=== PATIENT | female | born 1975 | race Hispanic/Latino ===

== ENCOUNTER → 2023-07-04 13:59 | Outpatient (CLI) | payer OTHER, SELFPAY ==
--- NOTE | 2023-07-04 14:11 | DI.MRI.S_ITS ---
PROCEDURE: MR ANKLE LT WO CON INDICATIONS: CHRONIC PAIN ANKLE LATERAL LIGAMENT TECHNIQUE: Noncontrast sagittal T1 spin echo and T2 fast spin echo with fat saturation, axial proton density fast spin echo and T2 fast spin echo with fat saturation, coronal T1 spin echo and T2 fast spin echo with fat saturation through the ankle/hindfoot. COMPARISON: None. FINDINGS: Image quality: Excellent. Bones and joints: Osteochondral injuries are noted involving medial weight-bearing portion of talar dome measures up to 0.4 x 0.3 x 1 cm in size. Surrounding edema is noted in weight-bearing portion of talus. No other area of abnormal marrow signal. Small tibiotalar joint effusion, no loose bodies. Medial structures: The posterior tibialis, flexor digitorum longus, and flexor hallucis longus tendons are intact. The posterior tibial neurovascular bundle appears normal within the tarsal tunnel, without extrinsic mass effect. The deep layer (anterior and posterior tibiotalar ligaments) and superficial layer (tibionavicular, tibiospring, and tibiocalcaneal ligaments) of the deltoid ligament appear normal. The spring ligament components (superomedial calcaneonavicular, medioplantar oblique calcaneonavicular, and inferoplantar longitudinal ligaments) are intact. Lateral structures: The anterior talofibular ligament is thickened. The calcaneofibular, and posterior talofibular ligaments appear intact. More superiorly, the anterior and posterior tibiofibular ligaments appear intact, as is the intermalleolar ligament. The tibiofibular syndesmosis is normal in width at 2 mm or less. The peroneus longus and brevis tendons are thickened at the level of mid to distal calcaneus extending to the level of cuboid. The sinus tarsi demonstrates normal fatty signal, without edema, fibrosis, or cyst formation. Visualized sinus tarsi components (cervical ligament, interosseous talocalcaneal ligament, roots of the inferior extensor retinaculum) appear normal. Anterior structures: The tibialis anterior, extensor hallucis longus, and extensor digitorum longus tendons appear intact. The dorsal talonavicular ligament appears intact. Posterior and plantar structures: Achilles tendon is intact. Medial and lateral bands of the plantar fascia are of normal thickness. No abductor digiti quinti muscle atrophy to suggest Vela neuropathy. IMPRESSION: 1. Osteochondral injuries involving medial weight-bearing portion of talar dome as described above. No fracture or dislocation. Small joint effusion, no loose bodies. 2. Low-grade ATFL sprain. 3. Tendinosis involving peroneus tendons at the level of mid to distal calcaneus extending to the level of cuboid. Dictated by: James Alfredo M.D. on 07/04/2023 at 16:53 Approved by: James Alfredo M.D. on 07/04/2023 at 16:55
== END ==
LOC: MRI 14:00
PROVIDERS: PCP Nurse Practitioner Family; Referring Provider Orthopaedic Surgery Foot and Ankle Surgery; Visit Provider Orthopaedic Surgery Foot and Ankle Surgery
DX: S99.812A Other specified injuries of left ankle, initial encounter (principal); S93.492A Sprain of other ligament of left ankle, initial encounter; M25.572 Pain in left ankle and joints of left foot; M25.472 Effusion, left ankle
CPT/HCPCS: 73721

== ENCOUNTER → 2023-08-02 10:48 | Outpatient (CLI) | payer OTHER, SELFPAY ==
--- NOTE | 2023-08-02 10:49 | DI.CT.S_ITS ---
PROCEDURE: CT ABDOMEN PELVIS WO CON INDICATIONS: History of kidney stones question of stone TECHNIQUE: Axial sections were acquired from the lung bases to the pubic symphysis. Coronal and sagittal reformats were performed. For radiation dose reduction, the following was used: automated exposure control, adjustment of mA and/or kV according to patient size. COMPARISON: None. FINDINGS: Image quality: Diagnostic. Lower Chest: No significant findings. URINARY: Right Kidney: Nonobstructing stones are seen in right kidney measures up to 3 mm in size in lower pole of right kidney. No hydronephrosis . Right Ureter: No hydroureter. Left Kidney: Tiny 1-2 mm nonobstructing stones are seen scattered in left renal parenchyma. No hydronephrosis. Left Ureter: No hydroureter. Bladder: Normal wall thickness. No stones. ABDOMEN: Liver: No contour-deforming solid mass. Moderate to severe hepatic steatosis is seen. Gallbladder: Gallbladder is surgically absent. Biliary ducts: No biliary dilation. Pancreas: No ductal dilation. Spleen: Size is within normal limits. Adrenal Glands: No adrenal nodules. Stomach and Bowel: There is no bowel obstruction or abnormal bowel wall thickening. No mesenteric fat stranding. Sigmoid diverticulosis is seen without CT evidence of acute diverticulitis. Appendix is not visualized. Peritoneum: No abnormal intraperitoneal fluid. No free air. Ventral Wall: No hernia. Abdominal Nodes: No enlarged retroperitoneal or mesenteric lymph nodes. Vessels: Aorta and inferior vena cava are normal in size. PELVIS: Pelvic Organs: Cystic structure within left adnexa measures 2.6 x 2.1 cm in size is seen. Surgical clip is also noted in left adnexa. Pelvic Nodes: Unremarkable. Miscellaneous: No inguinal hernias are seen. Bones: No aggressive appearing bony lesions. No acute vertebral body compression fracture. IMPRESSION: 1. Nonobstructing bilateral renal calculi measures up to 3 mm in size in mid to lower pole right kidney. No hydronephrosis or hydroureter. No solid appearing renal lesion. Normal appearing partially distended urinary bladder. 2. Moderate to severe hepatic steatosis. No discrete hepatic lesion. Prior cholecystectomy. No biliary ductal dilatation. 3. No bowel obstruction or abnormal bowel wall thickening. Colonic diverticulosis without CT evidence of acute diverticulitis. No free fluid or free air. 4. Possible left ovarian cyst as above. Dictated by: James Alfredo M.D. on 08/02/2023 at 12:50 Approved by: James Alfredo M.D. on 08/02/2023 at 12:58
== END ==
PROVIDERS: PCP Nurse Practitioner Family; Referring Provider Urology; Visit Provider Urology
DX: N39.3 Stress incontinence (female) (male) (principal); N20.0 Calculus of kidney; K76.0 Fatty (change of) liver, not elsewhere classified; Z90.49 Acquired absence of other specified parts of digestive tract; K57.30 Diverticulosis of large intestine without perforation or abscess without bleeding
CPT/HCPCS: 74176

== ENCOUNTER → 2023-12-12 13:45 | Outpatient (CLI) | payer OTHER, SELFPAY ==
--- NOTE | 2023-12-12 13:48 | DI.ECHO.S_ITS ---
[facility] : : [id number] : [place] : : [id number] : : Phone: [phone] Echocardiogram Report + + :Name: WILFREDO CALDERÓN Study Date: 12/12/2023 Height: 60 in : :Hospital ReadingLocation: Weight: 160 lb : : Gender: Female BSA: 1.7 m2 : :: 1975 Age: 48 yrs BP: 126/60 mmHg: :Reason For Study: CHEST PAIN, TACHYCARDIA : :Ordering Physician: BERTA STAHL Performed By: Florencio Camacho : :Referring: [id number] : + + Interpretation Summary The left ventricle is normal in size. The left ventricular ejection fraction is normal. The ejection fraction is estimated to be 60-65%. The right ventricle is normal in size and function. No significant valvular pathology seen The IVC is of normal diameter and collapses greater than 50% with a sniff. This suggests a low right atrial pressure of 3 mm Hg. Procedure: A two-dimensional transthoracic echocardiogram with color flow and Doppler was performed. The study quality was technically good. There is no prior echocardiogram noted for this patient. The patient was in normal sinus rhythm during the exam. Left Ventricle: The left ventricle is normal in size. There is normal left ventricular wall thickness. There is no thrombus. The ejection fraction is estimated to be 60-65%. The left ventricular ejection fraction is normal. There are no focal wall motion abnormalities. MV E/A: 1.1 Med Peak E' Cristian: 8.5 cm/sec E/E' med: 10.2. No significant diastolic dysfunction. Right Ventricle: The right ventricle is normal in size and function. The right ventricular systolic function is normal. Atria: The left atrial size is normal. Right atrial size is normal. There is no Doppler evidence for an atrial septal defect. Mitral Valve: The mitral valve is normal in structure and function. There is no mitral regurgitation noted. Aortic Valve: The aortic valve opens well. The aortic valve is not well visualized. There is no aortic valve stenosis. No aortic regurgitation is present. Tricuspid Valve: The tricuspid valve is normal. The right ventricular systolic pressure is estimated to be at least 23 mmHg based on an estimated right atrial pressure of 3 mm Hg. There is trace tricuspid regurgitation. Pulmonic Valve: The pulmonic valve is not well seen, but is grossly normal. There is no pulmonic valvular regurgitation. Great Vessels: The aortic root is normal size. The dimensions of the ascending aorta are normal. The pulmonary artery is normal size. The IVC is of normal diameter and collapses greater than 50% with a sniff. This suggests a low right atrial pressure of 3 mm Hg. Pericardium/ Pleura There is no pericardial effusion. There is an anterior echo-free space consistent with a fat pad. There is no pleural effusion. MMode/2D Measurements & Calculations LVIDd: 3.8 cm LVOT diam: 1.8 cm LVIDs: 2.5 cm Ao root diam: 2.8 cm FS: 34.5 % asc Aorta Diam: 2.7 cm EPSS: 0.38 cm Ao Arch Diam (Prox Trans): 1.9 cm IVSd: 0.79 cm LVPWd: 0.79 cm LV anderson. diameter/BSA (cm/m^2): 2.3 LV sys. diameter/BSA (cm/m^2): 1.5 LA A2 area: 13.8 cm2 RA long axis: 4.1 cm LA A4 area: 15.1 cm2 RA area: 11.7 cm2 LA length (vol): 4.9 cm RA vol: 28.6 ml LA vol: 36.4 ml RA : 16.9 ml/m2 LA vol index: 21.4 ml/m2 RVD1 (basal): 3.3 cm RVD2 (mid): 2.5 cm TAPSE: 2.5 cm Doppler Measurements & Calculations Ao V2 max: 141.6 cm/sec LVOT Max Cristian: 112.7 cm/sec Ao V2 mean: 98.3 cm/sec LV V1 max P.1 mmHg Ao max P.0 mmHg LV V1 VTI: 20.2 cm Ao mean P.4 mmHg BHASKAR(I,D): 1.7 cm2 Ao V2 VTI: 31.4 cm BHASKAR(V,D): 2.1 cm2 sev ratio: 0.64 BHASKAR indexed to BSA (cm^2/m^2): 1.0 MV E max cristian: 87.2 cm/sec TR max cristian: 226.4 cm/sec MV A max cristian: 77.8 cm/sec TR max P.5 mmHg MV E/A: 1.1 PA V2 max: 91.2 cm/sec Med Peak E' Cristian: 8.5 cm/sec PA V2 mean: 55.7 cm/sec E/E' med: 10.2 PA mean P.5 mmHg Lat Peak E' Cristian: 9.4 cm/sec PA pr(Accel): 20.8 mmHg E/E' lat: 9.3 E/e' average: 9.8 MV dec time: 0.17 sec SV(OT): 53.4 ml Reading Physician:03:11 PM
== END ==
PROVIDERS: PCP Nurse Practitioner Family; Referring Provider Physician Assistant; Visit Provider Physician Assistant
DX: Z00.00 Encounter for general adult medical examination without abnormal findings (principal)
CPT/HCPCS: 93306

== ENCOUNTER → 2023-12-29 09:06 | Outpatient (CLI) | payer OTHER, SELFPAY | PROVIDERS: PCP Nurse Practitioner Family; Visit Provider Urology | DX: K59.09 Other constipation (principal); N39.3 Stress incontinence (female) (male); N39.46 Mixed incontinence; Z87.442 Personal history of urinary calculi; Z68.30 Body mass index [BMI] 30.0-30.9, adult | CPT/HCPCS: 51798; 81002; 87086; 99214 ==

== ENCOUNTER → 2024-04-18 14:05 | Outpatient (CLI) | payer OTHER, SELFPAY ==
--- NOTE | 2024-04-18 14:07 | DI.RAD.S_ITS ---
PROCEDURE: XR KUB INDICATIONS: History of kidney stones TECHNIQUE: One view of the abdomen acquired. COMPARISON: None. FINDINGS: Surgical changes and devices: None. Bowel: Bowel gas pattern is normal. Soft tissues: No suspicious abdominal calcifications. Visualized solid organ contours appear normal in size. Surgical clips noted within the right upper quadrant and pelvis. Bones: No suspicious bony lesions. IMPRESSION: No acute abnormality. Dictated by: Yayo Powers M.D. on 04/19/2024 at 3:23 Approved by: Yayo Powers M.D. on 04/19/2024 at 3:24
== END ==
PROVIDERS: Referring Provider Urology; Visit Provider Urology
DX: Z09 Encounter for follow-up examination after completed treatment for conditions other than malignant neoplasm (principal); Z87.442 Personal history of urinary calculi
CPT/HCPCS: 74018

== ENCOUNTER → 2024-04-20 14:50 | Outpatient (CLI) | payer OTHER, SELFPAY | PROVIDERS: Visit Provider Urology | DX: R32 Unspecified urinary incontinence (principal) | CPT/HCPCS: 87086 ==